=== PATIENT | female | born 1990 | race African-American/Black ===

== ENCOUNTER 2018-12-11 16:06 | Emergency (ER) | payer OTHER ==
[~2018-12-11] VITALS: Ht 167.6 cm; Wt 59.0 kg
[2018-12-11 16:30] LABS: URINE BILIRUBIN 1+ (Negative); URINE BLOOD NEGATIVE (Negative); URINE CLARITY CLEAR; URINE COLOR YELLOW; URINE GLUCOSE-RANDOM* NEGATIVE (Negative); URINE KETONES NEGATIVE (Negative); URINE LEUKOCYTES-REFLEX NEGATIVE (Negative); URINE NITRITE-REFLEX NEGATIVE (Negative); URINE PROTEIN (DIPSTICK) 1+ (Negative); URINE SPECIFIC GRAVITY >= 1.030 (1.005-1.035); URINE UROBILINOGEN 0.2 E.U./dl (0.2-1.0)
[2018-12-11 16:32] LABS: ICTOTEST (BILI CONFIRMATORY) Positive (Negative)
[2018-12-11 16:39] LABS: MUCUS >6 Heavy strn/LPF (None Seen); SQUAMOUS >10 Many /LPF (0-3)
[2018-12-11 16:40] LABS: BACTERIA-REFLEX 1-9 Few /HPF (None Seen); CRYSTALS None Seen /LPF (None Seen); HYALINE CASTS 4-10 Moderate /LPF (None Seen); URINE RBC 0-2 Rare /HPF (0-2); URINE WBC-REFLEX 0-5 Rare /HPF (0-5)
[2018-12-11] MEDS ORDERED: FLAGYL500 M1 PO ×2 (18:10→18:13)
[2018-12-11] MEDS ORDERED: PENICILLIN V P500 MG PO ×2 (18:10→18:13)
[2018-12-11] MEDS ORDERED: MOBIC15 MG PO ×2 (18:10→18:13)
[2018-12-11] MEDS ORDERED: NORCO 5-325 TA1 EAC1 PO (18:10)
[2018-12-11 18:30] VITALS: BP 126/80
== END 2018-12-11 18:32 | disposition home or self-care (01) ==
LOC: ER 16:06
PROVIDERS: Physician Assistant
DX: K08.89 Other specified disorders of teeth and supporting structures (principal); N76.0 Acute vaginitis; B96.89 Other specified bacterial agents as the cause of diseases classified elsewhere; F17.210 Nicotine dependence, cigarettes, uncomplicated; Z88.1 Allergy status to other antibiotic agents; Z88.2 Allergy status to sulfonamides

== ENCOUNTER 2019-01-07 22:47 | Emergency (ER) | payer OTHER ==
[~2019-01-07] VITALS: Ht 167.6 cm; Wt 59.0 kg
[~2019-01-07 22:47] MED LIST: FLAGYL500 M1 PO; MOBIC15 MG PO; NORCO 5-325 TA1 EAC1 PO; PENICILLIN V P500 MG PO
[2019-01-08 01:46] LABS: URINE BILIRUBIN NEGATIVE (Negative); URINE BLOOD NEGATIVE (Negative); URINE CLARITY TURBID; URINE COLOR YELLOW; URINE GLUCOSE-RANDOM* NEGATIVE (Negative); URINE KETONES NEGATIVE (Negative); URINE LEUKOCYTES-REFLEX NEGATIVE (Negative); URINE NITRITE-REFLEX NEGATIVE (Negative); URINE PROTEIN (DIPSTICK) TRACE (Negative); URINE SPECIFIC GRAVITY >= 1.030 (1.005-1.035); URINE UROBILINOGEN 0.2 E.U./dl (0.2-1.0)
[2019-01-08] MEDS ORDERED: ONDANSETRON ODT8 MG PO (01:49)
[2019-01-08 02:12] VITALS: BP 112/70
== END 2019-01-08 02:13 | disposition home or self-care (01) ==
LOC: ER 22:47
PROVIDERS: Emergency Medicine
DX: N91.1 Secondary amenorrhea (principal); F17.210 Nicotine dependence, cigarettes, uncomplicated; Z88.2 Allergy status to sulfonamides

== ENCOUNTER 2019-01-12 09:07 | Emergency (ER) | payer OTHER ==
[~2019-01-12] VITALS: Ht 167.6 cm; Wt 56.7 kg
[~2019-01-12 09:07] MED LIST changes: +ONDANSETRON ODT8 MG PO
== END 2019-01-12 09:42 | disposition home or self-care (01) ==
LOC: ER 09:07
DX: R55 Syncope and collapse (principal); F17.210 Nicotine dependence, cigarettes, uncomplicated; Z88.8 Allergy status to other drugs, medicaments and biological substances; Z88.2 Allergy status to sulfonamides